=== PATIENT | male | born 1960 | race Caucasian/White ===

== ENCOUNTER 2021-10-08 00:41 | Day surgery (SDC) | payer OTHER, SELFPAY ==
[2021-08-25 13:43] VITALS: BMI 27.1
[2021-10-01 15:25] VITALS: BMI 27.1
--- NOTE | 2021-10-06 12:35 | PM.HPGS ---
History of Present Illness History of Present Illness Consent: Risks, benefits, and alternatives have been discussed and questions answered. Patient agrees to proceed with procedure. Chief complaint: neoplasm screening Narrative: Rivas Hathaway is a 61 year old male Referred for colon cancer screening. His last colonoscopy was 10 years ago Review of Systems Review of Systems: All systems reviewed & are unremarkable except as noted in HPI and below PMFSH Past Medical History Medical History Fracture, metacarpal 1978 GERD (gastroesophageal reflux disease) Hypothyroidism (acquired) IDDM (insulin dependent diabetes mellitus) Microalbuminuria due to type 2 diabetes mellitus Vitamin B12 deficiency Surgical History Surgical History No pertinent past surgical history Family History Family History Mother Diabetes mellitus Hypertension Family history of coronary artery disease Social History Social History Years smoked: 12 Smoking status: Former smoker Tobacco type: cigarettes Second hand tobacco smoke exposure: No Smoking end date: 04/11/86 Alcohol intake: current Drinks per week: 2 Alcohol use details: 2 beers maybe 3 times a month Substance use: never Substance use type: does not use Living arrangements: alone Additional living arrangements comments: With Gender identity (if verbalized by the patient): Male Spiritual care concerns: No Meds Home Medications and Allergies Home Medications Medication Instructions Recorded Confirmed Type vitamin B12 500 mcg-folic acid 400 1 tablet PO DAILY 02/21/19 10/01/21 History mcg tablet famotidine 20 mg tablet 20 mg PO DAILY PRN acid reflux 07/14/20 10/01/21 History simvastatin 10 mg tablet 10 mg PO QHS #90 tabs 01/13/21 10/01/21 Rx blood-glucose sensor (Dexcom G6 #9 ea 02/17/21 10/01/21 Rx Sensor device) blood-glucose transmitter (Dexcom #1 ea 02/17/21 10/01/21 Rx G6 Transmitter device) losartan 25 mg tablet 25 mg PO DAILY #90 tabs 05/18/21 10/01/21 Rx pen needle, diabetic 31 gauge x See Rx Instructions .Route 05/18/21 10/01/21 Rx 3/16 (BD Ultra-Fine Mini Pen .COMPLEX #100 syringes Needle) dapagliflozin 10 mg tablet 10 mg PO DAILY #90 tabs 06/08/21 10/01/21 Rx (Farxiga) insulin glargine 100 unit/mL (3 31 unit (0.31 mL) subcut DAILY #10 07/14/21 10/01/21 Rx mL) subcutaneous pen (Basaglar syringes KwikPen U-100 Insulin) metformin 500 mg tablet,extended 1,000 mg PO BID 07/14/21 10/01/21 History release 24 hr cholecalciferol (vitamin D3) 50 2,000 unit PO BID 08/25/21 10/01/21 History mcg (2,000 unit) capsule (Vitamin D3) levothyroxine 75 mcg tablet 75 mcg PO DAILY #90 tabs 09/08/21 10/01/21 Rx Allergies Allergy/AdvReac Type Severity Reaction Status Date / Time Penicillins Allergy Unknown Hives Verified 10/08/21 07:38 Exam Resp: Auscultation: clear to auscultation bilaterally Cardio: Rate: regular rate Rhythm: regular rhythm GI: GI Palp: Yes Soft to palpation and No Tenderness to palpation present (GI) Assessment and Plan Assessment and plan (1) Colon cancer screening: Code(s): Z12.11 - Encounter for screening for malignant neoplasm of colon Status: Acute Assessment and Plan: Colonoscopy with possible biopsy or polypectomy or cautery or injection of substances.
--- NOTE | 2021-10-07 18:57 | WPDANESEPPF ---
Anes - Initial Pre Proc Eval Procedure: Operation Date: 10/08/21 08:30 Proposed Procedures p Screening Colonoscopy - Andrade Montejo MD Date/Time: 10/07/21 18:57 Surgeon: Andrade Montejo MD Pre Op Diagnosis: neoplasm screening Patient Data Age: 61 Gender: M Height: 1.6 m Weight: 69.5 kg Allergies Allergy/AdvReac Type Severity Reaction Status Date / Time Penicillins Allergy Unknown Hives Verified 10/08/21 07:38 Home Medications Medication Instructions Recorded Confirmed Type vitamin B12 500 mcg-folic acid 400 1 tablet PO DAILY 02/21/19 10/01/21 History mcg tablet famotidine 20 mg tablet 20 mg PO DAILY PRN acid reflux 07/14/20 10/01/21 History simvastatin 10 mg tablet 10 mg PO QHS #90 tabs 01/13/21 10/01/21 Rx blood-glucose sensor (Dexcom G6 #9 ea 02/17/21 10/01/21 Rx Sensor device) blood-glucose transmitter (Dexcom #1 ea 02/17/21 10/01/21 Rx G6 Transmitter device) losartan 25 mg tablet 25 mg PO DAILY #90 tabs 05/18/21 10/01/21 Rx pen needle, diabetic 31 gauge x See Rx Instructions .Route 05/18/21 10/01/21 Rx 3/16 (BD Ultra-Fine Mini Pen .COMPLEX #100 syringes Needle) dapagliflozin 10 mg tablet 10 mg PO DAILY #90 tabs 06/08/21 10/01/21 Rx (Farxiga) insulin glargine 100 unit/mL (3 31 unit (0.31 mL) subcut DAILY #10 07/14/21 10/01/21 Rx mL) subcutaneous pen (Basaglar syringes KwikPen U-100 Insulin) metformin 500 mg tablet,extended 1,000 mg PO BID 07/14/21 10/01/21 History release 24 hr cholecalciferol (vitamin D3) 50 2,000 unit PO BID 08/25/21 10/01/21 History mcg (2,000 unit) capsule (Vitamin D3) levothyroxine 75 mcg tablet 75 mcg PO DAILY #90 tabs 09/08/21 10/01/21 Rx Patient hx anesthesia problems: none Family hx anesthesia problems: none Results Review: All pre-operative results and documents have been reviewed as part of the pre-operative evaluation. PENDING SALE TO [facility] Past Medical History Medical History Fracture, metacarpal 1978 GERD (gastroesophageal reflux disease) Hypothyroidism (acquired) IDDM (insulin dependent diabetes mellitus) Microalbuminuria due to type 2 diabetes mellitus Vitamin B12 deficiency Surgical History Surgical History No pertinent past surgical history Family History Family History Mother Diabetes mellitus Hypertension Family history of coronary artery disease Social History Social History Years smoked: 12 Smoking status: Former smoker Tobacco type: cigarettes Second hand tobacco smoke exposure: No Smoking end date: 04/11/86 Alcohol intake: current Drinks per week: 2 Alcohol use details: 2 beers maybe 3 times a month Substance use: never Substance use type: does not use Living arrangements: alone Additional living arrangements comments: With Gender identity (if verbalized by the patient): Male Spiritual care concerns: No Anes - Eval Final PreProcedure Day of Procedure 10/07/21 18:57 Patient weight: overweight Heart: regular rate and rhythm Lungs: clear to auscultation Airway: Mallampati scale class II Neurological: alert and oriented Last oral intake: >/= 8 hours ASA classification: III Emergent: no Anesthetic plan: proceed Anesthesia type and monitoring: general GIVS and standard monitoring Results Review: All pre-operative results and documents have been reviewed as part of the pre-operative evaluation. Informed Consent: The patient's anesthetic plan and its attendant risks and benefits were discussed with the patient/family/POA. Questions were solicited and answers provided to the satisfaction of the patient/family/POA.
[2021-10-08 07:30] VITALS: BMI 26.6
[2021-10-08 07:45] VITALS: BP 134/116; PULSE 82; RESP 18; TEMP 36.3; O2SAT 100
[2021-10-08] MEDS: LACTATED RINGERS 1,000 ML 150 ML IV CONT (07:46)
--- NOTE | 2021-10-08 07:54 | SUR.PREOP ---
pt has dexcom implant for blood sugar levels. reading on arrival to postop 122. dr parr and dr elena aware.
[2021-10-08 08:40] VITALS: BP 104/83; PULSE 82; RESP 17; O2SAT 97
[2021-10-08 08:50] VITALS: BP 120/75; PULSE 70; RESP 17; O2SAT 98
--- NOTE | 2021-10-08 08:50 | SUR.PHASEII ---
post procedure BS 147 per Dexcom
[2021-10-08 09:00] VITALS: BP 135/85; PULSE 74; RESP 19; O2SAT 98
== END 2021-10-08 09:30 | disposition home or self-care (01) ==
PROVIDERS: PCP Family Medicine; Visit Provider Internal Medicine Gastroenterology
PROC: 0DJD8ZZ Inspection of Lower Intestinal Tract, Via Natural or Artificial Opening Endoscopic (ICD-10-PCS; CPT 45378; principal; 2021-10-08 08:30)
DX: Z12.11 Encounter for screening for malignant neoplasm of colon (principal); K57.30 Diverticulosis of large intestine without perforation or abscess without bleeding; Z79.84 Long term (current) use of oral hypoglycemic drugs; Z79.4 Long term (current) use of insulin; E03.9 Hypothyroidism, unspecified; K21.9 Gastro-esophageal reflux disease without esophagitis; E53.8 Deficiency of other specified B group vitamins; R80.9 Proteinuria, unspecified; E11.69 Type 2 diabetes mellitus with other specified complication; Z87.891 Personal history of nicotine dependence
CPT/HCPCS: 45378; J2704; J7120

== ENCOUNTER 2022-01-12 10:34 | Outpatient (CLI) | payer OTHER, SELFPAY ==
[2022-01-12 19:52] LABS: Alanine Aminotransferase 21 U/L (6-50); Albumin Level 4.6 g/dL (3.5-5.1); Alkaline Phosphatase 51 U/L (38-126); Anion Gap 16 mmol/L (8-16); Aspartate Amino Transferase 25 U/L (17-59); Bilirubin,Total 0.5 mg/dL (0.2-1.3); Blood Urea Nitrogen 15 mg/dL (9-20); Calcium 9.8 mg/dL (8.4-10.2); Carbon Dioxide 25 mmol/L (22-30); Chloride 101 mmol/L (98-107); Estimated Glomerular Filt Rate > 60; Glucose 119 mg/dL (65-110); Potassium 3.8 mmol/L (3.4-5.0); Sodium 142 mmol/L (137-145)
[2022-01-12 20:02] LABS: Hemoglobin A1C 7.4 % (<5.7)
== END 2022-01-12 10:35 | disposition home or self-care (01) ==
LOC: ANHGOSHLAB 10:36
PROVIDERS: PCP Family Medicine; Visit Provider Family Medicine
DX: E11.9 Type 2 diabetes mellitus without complications (principal); E03.9 Hypothyroidism, unspecified; Z79.4 Long term (current) use of insulin; Z79.899 Other long term (current) drug therapy
CPT/HCPCS: 36415; 80053; 83036; 84443

== ENCOUNTER 2023-02-03 13:15 | Outpatient (CLI) | payer OTHER, SELFPAY ==
[2023-02-03 19:49] LABS: Alanine Aminotransferase 26 U/L (6-50); Albumin Level 4.5 g/dL (3.5-5.1); Alkaline Phosphatase 52 U/L (38-126); Anion Gap 9 mmol/L (8-16); Aspartate Amino Transferase 36 U/L (17-59); Bilirubin,Total 0.7 mg/dL (0.2-1.3); Blood Urea Nitrogen 19 mg/dL (9-20); Calcium 9.7 mg/dL (8.4-10.2); Carbon Dioxide 29 mmol/L (22-30); Chloride 98 mmol/L (98-107); Estimated Glomerular Filt Rate > 60; Glucose 175 mg/dL (65-110); Potassium 4.1 mmol/L (3.4-5.0); Sodium 136 mmol/L (137-145)
[2023-02-03 21:26] LABS: Hemoglobin A1C 6.8 % (<5.7)
== END 2023-02-03 13:16 | disposition home or self-care (01) ==
LOC: ANHGOSHLAB 13:16
PROVIDERS: PCP Family Medicine; Visit Provider Family Medicine
DX: E03.9 Hypothyroidism, unspecified (principal); E11.9 Type 2 diabetes mellitus without complications; I10 Essential (primary) hypertension; Z79.899 Other long term (current) drug therapy
CPT/HCPCS: 36415; 80053; 83036; 84443

== ENCOUNTER 2023-08-11 06:50 | Outpatient (CLI) | payer OTHER, SELFPAY ==
[2023-08-11 07:53] LABS: Basophils Percent Auto 0.8 % (0.2-1.2); Eosinophils Absolute Auto 0.4 K/mm3 (0-0.3); Eosinophils Percent Auto 7.7 % (0-4.4); Hematocrit 47.1 % (42.0-52.0); Immature Granulocyte Absolute 0.02 K/mm3 (0.00-0.031); Immature Granulocyte Percent A 0.4 % (0-0.5); Lymphocytes Absolute Auto 1.73 K/mm3 (0.9-3.2); Lymphocytes Percent Auto 32.5 % (18.3-44.2); Mean Corpuscular Hemoglobin 33.1 pg (26-34); Mean Corpuscular Volume 97.5 fl (80-100); Mean Platelet Volume 10.2 fl (7.4-10.4); Monocytes Absolute Auto 0.5 K/mm3 (0.1-0.6); Monocytes Percent Auto 8.6 % (2.6-8.5); Neutrophils Absolute Auto 2.7 K/mm3 (1.3-6.7); Platelet Count Result 226 k/mm3 (150-375); Red Blood Count 4.83 M/mm3 (4.6-6.20); Red Cell Distribution Width 13.7 % (11.5-14.5); White Blood Count 5.3 K/mm3 (4.5-10.0)
[2023-08-11 08:04] LABS: Alanine Aminotransferase 18 U/L (6-50); Albumin Level 4.6 g/dL (3.5-5.1); Alkaline Phosphatase 47 U/L (38-126); Anion Gap 6 mmol/L (4-12); Aspartate Amino Transferase 24 U/L (17-59); Bilirubin,Total 0.5 mg/dL (0.2-1.3); Blood Urea Nitrogen 18 mg/dL (9-20); Calcium 9.6 mg/dL (8.4-10.2); Carbon Dioxide 31 mmol/L (22-30); Chloride 106 mmol/L (98-107); Cholesterol 128 mg/dL (0-200); Estimated Glomerular Filt Rate > 60; Glucose 90 mg/dL (65-110); HDL Direct 46 mg/dL; Potassium 3.8 mmol/L (3.4-5.0); Sodium 143 mmol/L (137-145); Triglycerides 72 mg/dL (<150)
[2023-08-11 08:15] LABS: LDL Cholesterol Direct 74 mg/dL
[2023-08-11 08:33] LABS: Prostate Specific Antigen 2.8 ng/mL (< OR = 4.0)
[2023-08-11 08:45] LABS: Hemoglobin A1C 6.7 % (<5.7)
[2023-08-11 10:50] LABS: Total Triiodothyronine (T3) 1.39 NG/ML (0.97-1.69)
== END 2023-08-11 06:51 | disposition home or self-care (01) ==
LOC: ANHLAB 06:52
PROVIDERS: PCP Family Medicine; Visit Provider Nurse Practitioner Family
DX: Z00.00 Encounter for general adult medical examination without abnormal findings (principal); E78.5 Hyperlipidemia, unspecified; Z12.5 Encounter for screening for malignant neoplasm of prostate; R80.9 Proteinuria, unspecified; K21.9 Gastro-esophageal reflux disease without esophagitis; E53.8 Deficiency of other specified B group vitamins; E11.29 Type 2 diabetes mellitus with other diabetic kidney complication; E03.9 Hypothyroidism, unspecified; Z79.4 Long term (current) use of insulin; E11.9 Type 2 diabetes mellitus without complications; E55.9 Vitamin D deficiency, unspecified
CPT/HCPCS: 36415; 80053; 80061; 82306; 82607; 83036; 84153; 84439; 84443; 84480; 85025; G0103

== ENCOUNTER 2023-09-30 10:13 | Outpatient (CLI) | payer OTHER, SELFPAY ==
[2023-09-30 19:38] LABS: Thyroid Stimulating Hormone 0.713 uIU/mL (0.465-4.680)
== END 2023-09-30 10:14 | disposition home or self-care (01) ==
LOC: ANHGOSHLAB 10:14
PROVIDERS: PCP Family Medicine; Visit Provider Nurse Practitioner
DX: E03.9 Hypothyroidism, unspecified (principal)
CPT/HCPCS: 36415; 84443

== ENCOUNTER 2024-02-22 15:04 | Outpatient (CLI) | payer MEDICARE, SELFPAY ==
[2024-02-22 19:49] LABS: Alanine Aminotransferase 22 U/L (6-50); Albumin Level 4.6 g/dL (3.5-5.1); Alkaline Phosphatase 49 U/L (38-126); Anion Gap 9 mmol/L (4-12); Aspartate Amino Transferase 50 U/L (17-59); Bilirubin,Total 0.6 mg/dL (0.2-1.3); Blood Urea Nitrogen 20 mg/dL (9-20); Calcium 10.1 mg/dL (8.4-10.2); Carbon Dioxide 29 mmol/L (22-30); Chloride 101 mmol/L (98-107); Estimated Glomerular Filt Rate > 60; Glucose 84 mg/dL (65-110); Potassium 4.2 mmol/L (3.4-5.0); Sodium 139 mmol/L (137-145); Uric Acid 4.4 mg/dL (3.5-8.5)
[2024-02-22 21:37] LABS: Hemoglobin A1C 7.2 % (<5.7)
== END 2024-02-22 15:05 | disposition home or self-care (01) ==
LOC: ANHGOSHLAB 15:07
PROVIDERS: PCP Family Medicine; Visit Provider Family Medicine
DX: M25.572 Pain in left ankle and joints of left foot (principal); I10 Essential (primary) hypertension; E11.9 Type 2 diabetes mellitus without complications; M10.00 Idiopathic gout, unspecified site
CPT/HCPCS: 36415; 80053; 83036; 84443; 84550

== ENCOUNTER 2024-02-22 15:17 | Outpatient (CLI) | payer MEDICARE, SELFPAY ==
--- NOTE | ~2024-02-22 | XR_ITS ---
Left ankle Technique: AP and lateral views were obtained. Clinical History: Pain Findings: No acute fracture or dislocation is seen. Osseous alignment is anatomic. Ankle mortise and other visualized joint spaces are preserved. Soft tissues are otherwise unremarkable. Impression: Unremarkable left ankle. Reviewed, dictated and finalized at location . [facility] Impression: Unremarkable left ankle.
== END 2024-02-22 15:18 | disposition home or self-care (01) ==
LOC: GOSHIMG 15:18
PROVIDERS: PCP Family Medicine; Visit Provider Family Medicine
DX: M25.572 Pain in left ankle and joints of left foot (principal)
CPT/HCPCS: 73600

== ENCOUNTER 2024-05-22 11:18 | Emergency (ER) | payer MEDICARE, SELFPAY ==
[2024-05-22 11:28] VITALS: BP 143/74; PULSE 67; RESP 16; TEMP 36.3; O2SAT 98
--- NOTE | 2024-05-22 11:28 | ED.EAR ---
HPI - Ear Problem General Chief complaint: Ear Stated complaint: Ear Pain Source: patient and RN notes reviewed Mode of arrival: ambulatory Limitations: no limitations History of Present Illness HPI Narrative: Patient is a 64-year-old male who presents to the [facility] with complaints of right ear pain. Patient states that the pain started last night. He denies drainage from the ear. Denies decreased hearing. Denies recent fever or illness. Related Data Home Medications ?Medication ?Instructions ?Recorded ?Confirmed ?Last Taken ?Type vitamin B12 500 mcg-folic acid 400 1 tablet PO DAILY 02/21/19 02/22/24 10/07/21 History mcg tablet famotidine 20 mg tablet 20 mg PO DAILY PRN acid reflux 07/14/20 02/22/24 10/07/21 History cholecalciferol (vitamin D3) 50 2,000 unit PO DAILY 08/03/22 02/22/24 Unknown History mcg (2,000 unit) capsule (Vitamin D3) Allergies Allergy/AdvReac Type Severity Reaction Status Date / Time Penicillins Allergy Unknown Hives Verified 05/22/24 11:32 lisinopril AdvReac Mild Cough Verified 05/22/24 11:32 Review of Systems Review of Systems: CONSTITUTIONAL: Denies fever, chills, or sweats. EYES: Denies visual changes, redness, or discharge. ENT: Reports right ear pain but denies sore throat CARDIOVASCULAR: Denies chest pain, palpitations, or edema. RESPIRATORY: Denies cough or dyspnea. GASTROINTESTINAL: Denies abdominal pain, nausea, vomiting, or diarrhea. GENITOURINARY: Denies dysuria or hematuria. SKIN: Denies rash or itching. MUSCULOSKELETAL: Denies back pain, joint pain, or myalgia. NEUROLOGIC: Denies headache, numbness, or weakness. Pertinent positives per HPI. [facility] Past Medical History Medical History Vitamin D deficiency Hypothyroidism (acquired) Vitamin B12 deficiency GERD (gastroesophageal reflux disease) Microalbuminuria due to type 2 diabetes mellitus IDDM (insulin dependent diabetes mellitus) Fracture, metacarpal 1978 Surgical History Surgical History No pertinent past surgical history Family History Family History Mother Diabetes mellitus Hypertension Family history of coronary artery disease Sibling Malignant neoplasm of prostate Social History Social History Social History: Caffeine-diet soda Years smoked: 12 Smoking status: Former smoker Tobacco type: cigarettes Second hand tobacco smoke exposure: No Smoking end date: 11/09/88 Alcohol intake: current Drinks per week: 2 Alcohol use details: 2 beers maybe 3 times a month Substance use: never Substance use type: does not use Do You Feel Safe in your Home?: Yes Lack of Transportation: No Lack of Food: Never True Current Housing: I Have Housing Concerned About Future Housing: No Difficulty Paying Gas/Electric Bills: No Difficulty Paying for Meds: No Currently Unemployed: No Education: Master's Degree or Higher Difficulty w/ Childcare or Family Care: No Living arrangements: alone Additional living arrangements comments: With Occupation/Education: retired Gender identity (if verbalized by the patient): Male Spiritual care concerns: No Comments At the time of my signature, I reviewed and agree with the nursing past medical, surgical, social, and family history. There is no relevant family history pertinent to the patient complaint. Exam Narrative: GENERAL: This is a well-nourished, well-developed patient, in no apparent distress. HEAD: normocephalic, atraumatic. EYES: Sclera clear/white. Vision is grossly intact. EARS: External ears normal, auditory canals clear and without drainage, Right TM erythematous. Left TM normal without perforation. Hearing grossly intact. NOSE: External nose normal with no obvious nasal discharge, nares without redness, no rhinorrhea. THROAT: Mucous membranes moist, posterior pharynx clear. NECK: Neck supple, non-tender without lymphadenopathy, masses or thyromegaly. CARDIOVASCULAR: Regular rate and rhythm without murmurs, gallops, or rubs. RESPIRATORY: Clear to auscultation. Breath sounds equal bilaterally. No wheezes, rales, or rhonchi. GASTROINTESTINAL: Abdomen soft, non-tender, nondistended. Bowel sounds are active. No hepato-splenomegaly, or palpable masses. No guarding. SKIN: warm, intact with no suspicious lesions or rash, good texture and turgor. NEURO: awake, alert, and oriented to person, place and time. There were no obvious focal neurologic abnormalities. Course Course Level of Care: Express Care Visit Vital Signs Vital signs: Vital Signs Temperature 97.4 F L 05/22/24 11:28 Pulse Rate 67 05/22/24 11:28 Respiratory Rate 16 05/22/24 11:28 Blood Pressure 143/74 H 05/22/24 11:28 Pulse Oximetry 98 05/22/24 11:28 Temperature 97.4 F L 05/22/24 11:28 Pulse Rate 67 05/22/24 11:28 Respiratory Rate 16 05/22/24 11:28 Blood Pressure 143/74 H 05/22/24 11:28 Pulse Oximetry 98 05/22/24 11:28 Reviewed Medical Decision Making MDM Narrative Medical decision making narrative: Take antibiotics as directed. May given ibuprofen and/or Tylenol as needed for pain and/or fever. Follow up with primary care provider in 7-10 days to have ear rechecked. Differential Diagnosis Differential Diagnosis: Otitis media, otitis externa, cerumen impaction Vital Signs Vital Signs: Vital Signs Temperature 97.4 F L 05/22/24 11:28 Pulse Rate 67 05/22/24 11:28 Respiratory Rate 16 05/22/24 11:28 Blood Pressure 143/74 H 05/22/24 11:28 Pulse Oximetry 98 05/22/24 11:28 Temperature 97.4 F L 05/22/24 11:28 Pulse Rate 67 05/22/24 11:28 Respiratory Rate 16 05/22/24 11:28 Blood Pressure 143/74 H 05/22/24 11:28 Pulse Oximetry 98 05/22/24 11:28 Critical Care Time Critical Care Time Critical Care Time: No Discharge Plan Discharge Clinical Impression: Acute right otitis media Patient Disposition: Home, Self-Care Condition: Stable Instructions: Antibiotic Form, Ear Infection (ED) Additional Instructions: Take antibiotics as directed. May given ibuprofen and/or Tylenol as needed for pain and/or fever. Follow up with primary care provider in 7-10 days to have ear rechecked. Patient Language: Latvian Prescriptions: New cefdinir 300 mg capsule 300 mg PO Q12H 10 Days Qty: 20 0RF No Action vitamin X62-awbxa acid 500-400 mcg tablet 1 tablet PO DAILY famotidine 20 mg tablet 20 mg PO DAILY PRN (Reason: acid reflux) cholecalciferol (vitamin D3) [Vitamin D3] 50 mcg (2,000 unit) capsule 2,000 unit PO DAILY simvastatin 10 mg tablet 10 mg PO QHS Qty: 90 1RF insulin glargine [Lantus Solostar U-100 Insulin] 100 unit/mL (3 mL) insulin pen 31 unit subcut DAILY Qty: 30 1RF Farxiga 10 mg tablet 10 mg PO DAILY Qty: 90 1RF levothyroxine 88 mcg tablet 88 mcg PO DAILY Qty: 90 1RF (DME) Dexcom G6 Sensor Device See Rx Instructions .ROUTE .MEDSUPPLY Qty: 9 3RF Rx Instructions: For use with the Dexcom G6 systems. (DME) Dexcom G6 Transmitter Device See Rx Instructions .Route Qty: 1 3RF Rx Instructions: As directed metformin 500 mg tablet extended release 24 hr See Rx Instructions .ROUTE .COMPLEX Qty: 360 1RF Dose Instruction: TAKE 4 TABLETS BY MOUTH ONCE DAILY Rx Instructions: TAKE 4 TABLETS BY MOUTH ONCE DAILY losartan 25 mg tablet See Rx Instructions .ROUTE .COMPLEX Qty: 90 1RF Dose Instruction: TAKE 1 TABLET BY MOUTH EVERY DAY Rx Instructions: TAKE 1 TABLET BY MOUTH EVERY DAY pen needle, diabetic [BD Ultra-Fine Mini Pen Needle] 31 gauge x 3/16 needle See Rx Instructions .ROUTE .COMPLEX Qty: 100 1RF Dose Instruction: USE FOR INSULIN INJECTION DAILY DIRECTED Rx Instructions: USE FOR INSULIN INJECTION DAILY DIRECTED Follow-up/Referrals: Patricia Paris MD [Primary Care Provider] -
== END 2024-05-22 11:37 | disposition home or self-care (01) ==
PROVIDERS: Emergency Provider Nurse Practitioner; PCP Family Medicine
DX: H66.91 Otitis media, unspecified, right ear (principal); Z87.891 Personal history of nicotine dependence; E03.9 Hypothyroidism, unspecified; E11.29 Type 2 diabetes mellitus with other diabetic kidney complication; Z79.4 Long term (current) use of insulin; Z79.84 Long term (current) use of oral hypoglycemic drugs; E55.9 Vitamin D deficiency, unspecified; E53.8 Deficiency of other specified B group vitamins
CPT/HCPCS: 99213; G0463

== ENCOUNTER 2024-07-02 10:31 | Emergency (ER) | payer MEDICARE, SELFPAY ==
--- NOTE | 2024-07-02 10:34 | ED_ITS ---
HPI - Ear Problem General Chief complaint: Ear Stated complaint: Ear Pain Time Seen by Provider: 07/02/24 10:36 Source: patient Mode of arrival: ambulatory Limitations: no limitations History of Present Illness HPI Narrative: Rivas is a 64-year-old male patient presenting to the clinic today with complaints of right ear pain. He reports he was seen here on June 19 and was given prescription for cefdinir for right otitis media. He completed the cefdinir medication. States ear started hurting again yesterday. Wanted to get it checked out before it got worse. Has taken a decongestant this morning Related Data Home Medications ?Medication ?Instructions ?Recorded ?Confirmed ?Last Taken ?Type vitamin B12 500 mcg-folic acid 400 1 tablet PO DAILY 02/21/19 07/02/24 10/07/21 History mcg tablet famotidine 20 mg tablet 20 mg PO DAILY PRN acid reflux 07/14/20 07/02/24 10/07/21 History cholecalciferol (vitamin D3) 50 2,000 unit PO DAILY 08/03/22 07/02/24 Unknown History mcg (2,000 unit) capsule (Vitamin D3) Allergies Allergy/AdvReac Type Severity Reaction Status Date / Time Penicillins Allergy Unknown Hives Verified 07/02/24 10:36 lisinopril AdvReac Mild Cough Verified 07/02/24 10:36 Review of Systems Review of Systems: Pertinent positives per HPI. Patient denies any fever, chills, rash, headache, visual changes, dizziness, cough, runny nose, sore throat, shortness of breath, chest pain, palpitations, nausea, vomiting, diarrhea, constipation, abdominal pain, or any urinary issues. [facility] Past Medical History Medical History Vitamin D deficiency Hypothyroidism (acquired) Vitamin B12 deficiency GERD (gastroesophageal reflux disease) Microalbuminuria due to type 2 diabetes mellitus IDDM (insulin dependent diabetes mellitus) Fracture, metacarpal 1977 Surgical History Surgical History No pertinent past surgical history Family History Family History Mother Diabetes mellitus Hypertension Family history of coronary artery disease Sibling Malignant neoplasm of prostate Social History Social History Social History: Caffeine-diet soda Years smoked: 12 Smoking status: Former smoker Tobacco type: cigarettes Second hand tobacco smoke exposure: No Smoking end date: 11/09/88 Alcohol intake: current Drinks per week: 2 Alcohol use details: 2 beers maybe 3 times a month Substance use: never Substance use type: does not use Do You Feel Safe in your Home?: Yes Lack of Transportation: No Lack of Food: Never True Current Housing: I Have Housing Concerned About Future Housing: No Difficulty Paying Gas/Electric Bills: No Difficulty Paying for Meds: No Currently Unemployed: No Education: Master's Degree or Higher Difficulty w/ Childcare or Family Care: No Living arrangements: alone Additional living arrangements comments: With Occupation/Education: retired Gender identity (if verbalized by the patient): Male Spiritual care concerns: No Comments At the time of my signature, I reviewed and agree with the nursing past medical, surgical, social, and family history. There is no relevant family history pertinent to the patient complaint. Exam Narrative: General: Well-developed, well nourished, in no apparent distress Head: Normocephalic, atraumatic Eyes: Pupils equally round and reactive to light bilaterally, EOM intact, sclera and conjunctive clear, no discharge, lids normal Ears: TMs intact and clear, mild pressure noted over the right TM with tenderness to palpation over the eustachian tube, ear canals clear, no drainage, grossly hearing normal. Nose: Nares patent, clear discharge, no inflammation, no sinus tenderness. Mouth: Oropharynx without lesions or masses, good dentition, MMM. Neck: Supple, trachea midline, no enlargement of anterior or posterior cervical nodes, no thyroid masses or goiter palpable. Cardio: Regular rate and rhythm, s1 and s2 normal, no murmur appreciated. Resp: Clear to auscultation bilaterally anteriorly and posteriorly, no rhonchi, rales, wheezing or rubs Course Course Emergency Course: Portions of this record may have been created with voice recognition software. Level of Care: Express Care Visit Vital Signs Vital signs: Vital Signs Temperature 36.6 C 07/02/24 10:36 Pulse Rate 82 07/02/24 10:36 Respiratory Rate 18 07/02/24 10:36 Blood Pressure 94/71 L 07/02/24 10:36 Pulse Oximetry 100 07/02/24 10:36 Oxygen Delivery Room Air 07/02/24 10:36 Temperature 36.6 C 07/02/24 10:36 Pulse Rate 82 07/02/24 10:36 Respiratory Rate 18 07/02/24 10:36 Blood Pressure 94/71 L 07/02/24 10:36 Pulse Oximetry 100 07/02/24 10:36 Oxygen Delivery Room Air 07/02/24 10:36 Vital signs reviewed Medical Decision Making MDM Narrative Medical decision making narrative: At the time of visit patient is resting comfortably on the exam table. Patient appears to be nontoxic. Plan: I suspect patient has right eustachian tube dysfunction. Supportive measures were discussed with the patient and they voiced understanding discharge instructions and agrees to treatment plan. Return precautions reviewed Differential Diagnosis Differential Diagnosis: Otitis media, otitis externa, eustachian tube dysfunction, cerumen impaction, upper respiratory infection, serous otitis Vital Signs Vital Signs: Vital Signs Temperature 36.6 C 07/02/24 10:36 Pulse Rate 82 07/02/24 10:36 Respiratory Rate 18 07/02/24 10:36 Blood Pressure 94/71 L 07/02/24 10:36 Pulse Oximetry 100 07/02/24 10:36 Oxygen Delivery Room Air 07/02/24 10:36 Temperature 36.6 C 07/02/24 10:36 Pulse Rate 82 07/02/24 10:36 Respiratory Rate 18 07/02/24 10:36 Blood Pressure 94/71 L 07/02/24 10:36 Pulse Oximetry 100 07/02/24 10:36 Oxygen Delivery Room Air 07/02/24 10:36 Discharge Plan Discharge Clinical Impression: ETD (eustachian tube dysfunction) Qualifiers: Laterality: right Qualified Code(s): H69.91 - Unspecified Eustachian tube disorder, right ear Patient Disposition: Home, Self-Care Condition: Stable Instructions: Antibiotic Form, Earache (ED) Additional Instructions: May take Sudafed for eustachian tube dysfunction May also use Flonase nasal spray and taken [id number]-izd-[id number] antihistamine such as Zyrtec or Claritin daily. Tylenol/motrin as needed for pain May use heating pad to alleviate pain If you get recurrent ear infections it may be warranted to follow up with ENT. Follow up with your PCP in 5-7 days if symptoms persist. Patient Language: Bengali Prescriptions: No Action vitamin V70-gxbrl acid 500-400 mcg tablet 1 tablet PO DAILY famotidine 20 mg tablet 20 mg PO DAILY PRN (Reason: acid reflux) cholecalciferol (vitamin D3) [Vitamin D3] 50 mcg (2,000 unit) capsule 2,000 unit PO DAILY simvastatin 10 mg tablet 10 mg PO QHS Qty: 90 1RF insulin glargine [Lantus Solostar U-100 Insulin] 100 unit/mL (3 mL) insulin pen 31 unit subcut DAILY Qty: 30 1RF Farxiga 10 mg tablet 10 mg PO DAILY Qty: 90 1RF levothyroxine 88 mcg tablet 88 mcg PO DAILY Qty: 90 1RF (DME) Dexcom G6 Sensor Device See Rx Instructions .ROUTE .MEDSUPPLY Qty: 9 3RF Rx Instructions: For use with the Dexcom G6 systems. (DME) Dexcom G6 Transmitter Device See Rx Instructions .Route Qty: 1 3RF Rx Instructions: As directed metformin 500 mg tablet extended release 24 hr See Rx Instructions .ROUTE .COMPLEX Qty: 360 1RF Dose Instruction: TAKE 4 TABLETS BY MOUTH ONCE DAILY Rx Instructions: TAKE 4 TABLETS BY MOUTH ONCE DAILY losartan 25 mg tablet See Rx Instructions .ROUTE .COMPLEX Qty: 90 1RF Dose Instruction: TAKE 1 TABLET BY MOUTH EVERY DAY Rx Instructions: TAKE 1 TABLET BY MOUTH EVERY DAY pen needle, diabetic [BD Ultra-Fine Mini Pen Needle] 31 gauge x 3/16 needle See Rx Instructions .ROUTE .COMPLEX Qty: 100 1RF Dose Instruction: USE FOR INSULIN INJECTION DAILY DIRECTED Rx Instructions: USE FOR INSULIN INJECTION DAILY DIRECTED Follow-up/Referrals: PHYSICIAN,[facility] [employer] [Primary Care Provider] - Time of Disposition: 10:42 Quality NIHSS Nursing Documentation ED NIHSS nursing documentation: reviewed/agree
[2024-07-02 10:36] VITALS: BP 94/71; PULSE 82; RESP 18; TEMP 36.6; O2SAT 100
== END 2024-07-02 10:45 | disposition home or self-care (01) ==
PROVIDERS: Emergency Provider Nurse Practitioner Family
DX: H69.91 Unspecified Eustachian tube disorder, right ear (principal); Z87.891 Personal history of nicotine dependence; E11.9 Type 2 diabetes mellitus without complications; Z79.4 Long term (current) use of insulin; Z79.84 Long term (current) use of oral hypoglycemic drugs; E03.9 Hypothyroidism, unspecified; K21.9 Gastro-esophageal reflux disease without esophagitis; E53.8 Deficiency of other specified B group vitamins; E55.9 Vitamin D deficiency, unspecified
CPT/HCPCS: 99211; G0463

== ENCOUNTER 2024-08-10 11:00 | Outpatient (CLI) | payer MEDICARE, SELFPAY ==
[2024-08-10 18:07] LABS: Basophils Percent Auto 0.4 % (0.2-1.2); Eosinophils Absolute Auto 0.4 K/mm3 (0-0.3); Hematocrit 47.3 % (42.0-52.0); Hemoglobin 15.5 g/dL (14.0-18.0); Immature Granulocyte Absolute 0.01 K/mm3 (0.00-0.031); Immature Granulocyte Percent A 0.2 % (0-0.5); Lymphocytes Absolute Auto 1.44 K/mm3 (0.9-3.2); Lymphocytes Percent Auto 28.2 % (18.3-44.2); Mean Corpuscular HGB Conc 32.8 g/dl (32-36); Mean Corpuscular Hemoglobin 32.4 pg (26-34); Mean Corpuscular Volume 98.7 fl (80-100); Mean Platelet Volume 10.1 fl (7.4-10.4); Monocytes Absolute Auto 0.5 K/mm3 (0.1-0.6); Monocytes Percent Auto 9.4 % (2.6-8.5); Neutrophils Absolute Auto 2.8 K/mm3 (1.3-6.7); Neutrophils Percent Auto 54.8 % (45.5-73.1); Platelet Count Result 242 k/mm3 (150-375); Red Blood Count 4.79 M/mm3 (4.6-6.20); Red Cell Distribution Width 13.6 % (11.5-14.5); White Blood Count 5.1 K/mm3 (4.5-10.0)
[2024-08-10 18:14] LABS: Alanine Aminotransferase 21 U/L (6-50); Albumin Level 4.3 g/dL (3.5-5.1); Alkaline Phosphatase 47 U/L (38-126); Anion Gap 6 mmol/L (4-12); Aspartate Amino Transferase 33 U/L (17-59); Bilirubin,Total 0.4 mg/dL (0.2-1.3); Blood Urea Nitrogen 22 mg/dL (9-20); Calcium 9.4 mg/dL (8.4-10.2); Carbon Dioxide 32 mmol/L (22-30); Chloride 101 mmol/L (98-107); Cholesterol 142 mg/dL (0-200); Estimated Glomerular Filt Rate > 60; Glucose 171 mg/dL (65-110); HDL Direct 50 mg/dL; Potassium 4.6 mmol/L (3.4-5.0); Sodium 139 mmol/L (137-145); Triglycerides 72 mg/dL (<150)
[2024-08-10 18:22] LABS: Creatinine Urine 29.4 mg/dL
[2024-08-10 18:24] LABS: LDL Cholesterol Direct 65 mg/dL
[2024-08-10 18:27] LABS: Vitamin D 25 Hydroxy 87.6 ng/mL
[2024-08-10 18:27] LABS: MALB Creatinine Ratio 63.6 mg/g (0-30); Microalbumin Urine Random 18.7 mg/L (0-16.7)
[2024-08-10 18:29] LABS: Hemoglobin A1C 6.3 % (<5.7)
[2024-08-10 18:44] LABS: Prostate Specific Antigen 3.3 ng/mL (< OR = 4.0)
== END 2024-08-10 11:01 | disposition home or self-care (01) ==
LOC: ANHGOSHLAB 11:01
PROVIDERS: PCP Family Medicine; Visit Provider Family Medicine
DX: E53.8 Deficiency of other specified B group vitamins (principal); E03.9 Hypothyroidism, unspecified; E55.9 Vitamin D deficiency, unspecified; E78.5 Hyperlipidemia, unspecified; I10 Essential (primary) hypertension; E11.9 Type 2 diabetes mellitus without complications; Z12.5 Encounter for screening for malignant neoplasm of prostate
CPT/HCPCS: 36415; 80053; 80061; 82043; 82306; 82607; 83036; 84153; 84443; 85025; G0103

== ENCOUNTER 2025-02-19 10:03 | Outpatient (CLI) | payer MEDICARE, SELFPAY ==
[2025-02-19 13:13] LABS: Alanine Aminotransferase 22 U/L (6-50); Albumin Level 4.5 g/dL (3.5-5.1); Alkaline Phosphatase 45 U/L (38-126); Anion Gap 6 mmol/L (4-12); Aspartate Amino Transferase 54 U/L (17-59); Bilirubin,Total 0.5 mg/dL (0.2-1.3); Blood Urea Nitrogen 22 mg/dL (9-20); Calcium 9.4 mg/dL (8.4-10.2); Carbon Dioxide 29 mmol/L (22-30); Chloride 103 mmol/L (98-107); Estimated Glomerular Filt Rate > 60; Glucose 123 mg/dL (65-110); Potassium 4.7 mmol/L (3.4-5.0); Sodium 138 mmol/L (137-145); Total Protein 6.9 g/dL (6.3-8.2)
[2025-02-19 16:23] LABS: Thyroid Stimulating Hormone Reflex 2.100 uIU/mL (0.465-4.68)
[2025-02-19 16:50] LABS: Hemoglobin A1C 6.3 % (<5.7)
== END 2025-02-19 10:04 | disposition home or self-care (01) ==
LOC: ANHGOSHLAB 10:04
PROVIDERS: PCP Family Medicine; Visit Provider Family Medicine
DX: E11.9 Type 2 diabetes mellitus without complications (principal); I10 Essential (primary) hypertension; E03.9 Hypothyroidism, unspecified
CPT/HCPCS: 36415; 80053; 83036; 84443